=== PATIENT | female | born 1955 | race Caucasian/White ===

== ENCOUNTER → 2017-02-28 | Outpatient (CLI) | payer MEDICARE, OTHER ==
[~2017-02-28] MED LIST: CYMBALTA PO; DIAZEPAM; DOC-Q-LACE100 MG PO; KLONOPIN0.5 MG PO; LEVOTHYROXINE75 MC1 PO; LORTAB 10/500 T1 TAB; OXYCODONE15 M1 PO; PERCOCET; SEROQUEL400 MG PO; SOMA; SOMA PO; TOVIAZ8 MG PO; ZESTRIL10 M2 PO
--- NOTE | ~2017-02-28 | CT95 ---
[facility] RADIOLOGY TEXT RESULTS PATIENT: JAZMINE OJEDA LOCATION: [facility] : 53 UNIT #: [id number] AGE: [address]: KRISTEN MARIA MD SEX: F ORDER DR: [id number] [facility] [address] [place], [place] [address] [id number] MR#: [id number] Acc #: [id number] NAME: JAZMINE OJEDA. : 1955 SEX: F STUDY DATE/TIME: 02/28/2017 15:21 UNIT: [facility] ROOM: STUDY DESCRIPTION: CT Lower Ext Rt Wo Cont Attending Physician: Kristen Maria M.D. Referring Physician: Kristen Maria M.D. Ordering Physician: Doc Maria M.D. Primary Care Physician: Ruthie Lopez M.D. MEDICAL IMAGING REPORT This report is preliminary unless electronic signature is present EXAM CT right lower extremity HISTORY 61-year-old female, fell 6 years ago fracturing lower leg, had surgery and [facility], [facility] plates and screws have moved. 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 COMPARISON Right knee films 04/16/2016 TECHNIQUE Thin section axial images form through the right lower leg without contrast. Multiplanar reconstructed images were reviewed at a workstation. This CT exam was performed with one or more of the following radiation dose reduction techniques: automatic exposure control, adjustment of mA and/or kV according to patient size, and iterative reconstruction. FINDINGS Patient is status post ORIF of a distal tibial fracture and distal fibular fracture. The tibial fracture is fixated with a long intramedullary nail with proximal and distal interlocking screws and the distal fibular fracture demonstrates a long lateral side plate with proximal and distal fixation screws. No definite fracture or loosening instrumentation is identified. The two distal interlocking screws within the distal tibia demonstrate their heads along the lateral margin of the lateral tibia and both heads partially engage the distal fibula with some reactive sclerosis and some reactive deformity of the distal fibula related to the screws as these sit proud at the cortical surface up to 3-4 mm. The distal tibial fracture primarily represents a transverse fracture of the diametaphysis of the distal tibia and the fracture remains clearly STS. [facility] A Service of [facility] RADIOLOGY TEXT RESULTS PATIENT: JAZMINE OJEDA LOCATION: [facility] : 54 UNIT #: [id number] AGE: [address]: KRISTEN MARIA MD SEX: F ORDER DR: visible without contiguous marrow space or firm endosteal healing or bridging callus. Fracture would be estimated at well less than 25% healed. Sclerosis along the margins would be compatible with chronic fracture nonunion. The distal fibular fracture represents primarily a short oblique fracture and there is minimal residual anterior angulation of the fracture, but the fracture is predominately healed with both endosteal healing and bridging callus. Some residual defect is seen within the anterior aspect of the distal fibula. Ankle joint demonstrates subtle deformity of the tibial plafond, which may be related to an area of chondromalacia and subchondral cystic change along the central tibial plafond. This also may represent the sequela of a healed posterior malleolar fracture, but no significant incongruity articular surface. There are early arthritic changes of the ankle joint. In the knee joint, there is mild medial joint space narrowing. Lucencies seen within the lateral aspect of the proximal tibia, probably related to possible bone graft harvest site. Lower leg soft tissues unremarkable. IMPRESSION 1. Status post ORIF of a distal tibial fracture with intramedullary nail proximal distal interlocking screws. Fracture demonstrates no significant endosteal healing or bridging callus. 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 No evidence of instrumentation failure. 2. Status post ORIF of a distal fibular fracture which appears healed. 3. Subtle deformity of the tibial plafond could represent either an area of chondromalacia or possibly the sequela of a healed posterior malleolar fracture. This may not be clinically significant though there does appear to be early arthritic changes at the ankle joint. 4. Two of the distal interlocking screws within the intramedullary nail sit proud at the lateral cortex of the distal tibia and demonstrate sclerosis and reactive deformity of the corresponding anterior fibular cortex. This could be a potential contributing factor to the patient's pain. Dictated by... Hetal Anders M.D. THIS IS AN ELECTRONICALLY VERIFIED REPORT Hetal Anders M.D. at 03/04/2017 5:58 AM RYAN/shanique TD: 03/03/2017 16:44 JOB #: [id number] MEDICAL IMAGING REPORT Page 1 of 1 COPY
[2017-02-28 14:28] LABS: BASOPHIL% 0.5 % (0-2.5); EOSINOPHIL# 0.2 X10e3 (0-0.7); EOSINOPHIL% 2.6 % (0.0-7.0); HEMATOCRIT 45.8 % (35.0-45.0); HEMOGLOBIN 14.8 gm/dL (12.0-16.0); LYMPHOCYTE# 1.9 X10e3 (1.0-3.5); LYMPHOCYTE% 31.9 % (17.0-45.0); MEAN CELL VOLUME 94.1 FL (83-96); MEAN CORPUSCULAR HEMOGLOBIN 30.4 PG (28-34); MEAN CORPUSCULAR HGB CONC 32.3 g/dL (30-36); MONOCYTE# 0.4 X10e3 (0-1.0); MONOCYTE% 7.1 % (3.0-12.0); NEUTROPHIL# 3.4 X10e3 (1.5-7.1); NEUTROPHIL% 57.9 % (40-75); PLATELET COUNT 123 X10e3 (140-420); RED BLOOD COUNT 4.87 X10e (3.90-5.30); RED CELL DISTRIBUTION WIDTH 13.7 % (11.0-15.5); WHITE BLOOD COUNT 5.8 X10e3 (4.0-10.5)
[2017-02-28 14:31] LABS: DIFF IND NO
[2017-02-28 15:05] LABS: BUN/CREATININE RATIO 22.85; CALCIUM SERUM 8.9 mg/dL (8.4-10.2); CREATININE SERUM 0.7 mg/dL (0.6-1.4); GLOM FILT RATE Estimated 92.9 mL/min (>60); POTASSIUM 3.9 mmol/L (3.5-5.1)
== END | disposition home or self-care (01) ==
LOC: CCAT 02-19 09:00
PROVIDERS: Orthopaedic Surgery
DX: S82.301K Unspecified fracture of lower end of right tibia, subsequent encounter for closed fracture with nonunion (principal); Z98.890 Other specified postprocedural states
CPT/HCPCS: 36415; 73700; 80048; 82306; 82330; 82652; 83036; 85025; 85652; 86140